=== PATIENT | female | born 1955 ===

== ENCOUNTER 2025-04-24 17:15 | Emergency (ER) | payer MEDICARE ==
[~2025-04-24] VITALS: Ht 154.9 cm; Wt 64.0 kg
[2025-04-24] MEDS ORDERED: METO-357 PO (18:41)
[2025-04-24] MEDS ORDERED: SULF1TAB48 PO (18:59)
[2025-04-24 19:05] VITALS: BP 150/83; TEMP 97.7; O2SAT 99
== END 2025-04-24 19:06 | disposition home or self-care (01) ==
LOC: ER 17:15
DX: L72.3 Sebaceous cyst (principal); L08.9 Local infection of the skin and subcutaneous tissue, unspecified; R03.0 Elevated blood-pressure reading, without diagnosis of hypertension; I10 Essential (primary) hypertension; Z79.899 Other long term (current) drug therapy; Z88.0 Allergy status to penicillin
CPT/HCPCS: A4606; A4663